=== PATIENT | female | born 1955 | race Caucasian/White ===

== ENCOUNTER 2019-09-30 09:41 | Emergency (ER) | payer OTHER ==
[2019-09-30 09:53] VITALS: TEMP 99; BMI 27.5
--- NOTE | 2019-09-30 09:53 | PDOC ---
Rapid Medical Evaluation Chief Complaint: Pain Time Seen by Provider: 09/30/19 09:43 Medical Evaluation: 09/30/19 09:46 I have performed a brief in-person evaluation of this patient. The patient presents with a chief complaint of: Sent in for leukocytosis. Per daughter, pt started on rifampin by PMD "to prevent TB" after "positive blood work". Had routine blood works 3 days ago and told that wbc high per daughter. Pt feels well with no acute medical complaints Pertinent physical exam findings:stable, NAD I have ordered the following:labs The patient will proceed to the ED for further evaluation Discharge Disposition - Diagnosis Leukocytosis Qualifiers: Leukocytosis type: other Qualified Code(s): D72.828 - Other elevated white blood cell count - Referrals - Patient Instructions - Post Discharge Activity
[2019-09-30 10:28] LABS: BASO % 0.5 % (0-2.0); EOS % 0.1 % (0-4.5); HEMATOCRIT 43.4 % (32.4-45.2); HEMOGLOBIN 14.1 GM/dL (10.7-15.3); LYMPH % 20.1 % (8-40); MCH 30.3 pg (25.7-33.7); MCHC 32.6 g/dl (32.0-36.0); MONO % 3.3 % (3.8-10.2); PLATELET COUNT 315 K/MM3 (134-434); RBC 4.66 M/mm3 (3.60-5.2); RDW 13.6 % (11.6-15.6); WHITE BLOOD COUNT 12.3 K/mm3 (4.0-10.0)
[2019-09-30 10:36] LABS: EPI CELLS 21 /uL (0-25.1); HYALINE CASTS 1 /uL (0-3.1); URINE APPEARANCE CLEAR; URINE BACTERIA 325 /uL (0-1359); URINE BILIRUBIN NEGATIVE (NEGATIVE); URINE COLOR YELLOW; URINE GLUCOSE (UA) NEGATIVE (NEGATIVE); URINE KETONE NEGATIVE (NEGATIVE); URINE LEUK ESTERASE TRACE (NEGATIVE); URINE NITRITE NEGATIVE (NEGATIVE); URINE PROTEIN NEGATIVE (NEGATIVE); URINE RBC 6 /uL (0-23.9); URINE UROBILINOGEN 0.2 mg/dL (0.2-1.0); URINE WBC 14 /uL (0-25.8)
--- NOTE | 2019-09-30 10:40 | PDOC ---
Documentation entered by Prudence Harper SCRIBE, acting as scribe for Pipo Renae MD. Pipo Renae MD: This documentation has been prepared by the Leroy bush Adrianna, SCRIBE, under my direction and personally reviewed by me in its entirety. I confirm that the documentation accurately reflects all work, treatment, procedures, and medical decision making performed by me. History of Present Illness - General Chief Complaint: Abnormal Lab Results (Outside) Stated Complaint: ABN LAB RESULTS/SENT BY PCP Time Seen by Provider: 09/30/19 09:43 - History of Present Illness Initial Comments: The patient is a 64 year old female, with h/o HTN, who presents to the ED for evaluation of elevated WBC on outpt labs. As per the patients daughter, she was recently placed on rifampin prophylactically for 4 months for treatment of latent TB. Pt had CXR that was negative for any acute pathology. During a recent blood draw 3 days ago, patient was found to have leukocytosis of 13. This was repeated and found to be 16. Pt was subsequently advised to come to the ED for further evaluation. Patient denies any complaints while in the ED. No F/C. No cough. No N/V/D. Allergies: NKA, NKDA Surgical History: None reported Social History: No toxic habits PCP: Dr. Allison Ny Past History - Medical History Allergies/Adverse Reactions: Allergies Allergy/AdvReac Type Severity Reaction Status Date / Time No Known Allergies Allergy Verified 09/30/19 09:50 COPD: No - Psycho-Social/Smoking History Smoking History: Never smoked - Substance Abuse Hx (Audit-C & DAST Scrn) How often the patient has a drink containing alcohol: Never Score: In Men: 4 or > Positive; In Women: 3 or > Positive: 0 Screen Result (Pos requires Nsg. Audit-10AR): Negative Review of Systems - Review of Systems Comments:: CONSTITUTIONAL: No reported: Fever, Chills, Diaphoresis, Generalized Weakness, Malaise, Loss of Appetite HEENT: No reported: Rhinorrhea, Nasal Congestion, Throat Pain, Throat Swelling, Difficulty Swallowing, Mouth Swelling, Ear Pain, Eye Pain, Visual Changes CARDIOVASCULAR: No reported: Chest Pain, Syncope, Palpitations, Irregular Heart Rate, Lightheadedness, Peripheral Edema RESPIRATORY: No reported: Cough, Shortness of Breath, SOB with Exertion, Orthopnea, Wheezing, Stridor, Hemoptysis GASTROINTESTINAL: No reported: Abdominal pain, Abdominal Distension, Nausea, Vomiting, Diarrhea, Constipation, Melena, Hematochezia GENITOURINARY: No reported: Dysuria, Frequency, Urgency, Hesitancy, Flank Pain, Genital Pain MUSCULOSKELETAL: No reported: Myalgia, Arthralgia, Joint Swelling, Back pain, Neck Pain SKIN: No reported: Rash, Itching, Pallor HEMATOLOGIC/IMMUNOLOGIC: No reported: Easy Bleeding, Easy Bruising, Lymphadenopathy, Frequent infections ENDOCRINE: No reported: Unexplained Weight Gain, Unexplained Weight Loss, Heat Intolerance, Cold Intolerance NEUROLOGIC: No reported: Headache, Focal Weakness, Paresthesias, Vertigo, Lightheadedness, Unsteady Gait, Seizure, Mental Status Changes, Incontinence PSYCHIATRIC: No reported: Anxiety, Depression *Physical Exam - Vital Signs Last Vital Signs Temp Pulse Resp BP Pulse Ox 99.0 F 94 H 18 151/74 98 09/30/19 09:46 09/30/19 09:46 09/30/19 09:46 09/30/19 09:46 09/30/19 09:46 - Physical Exam GENERAL: The patient is awake, alert, and fully oriented, Nontoxic - in no acute distress. HEAD: Normocephalic, atraumatic. EYES: extraocular movements intact, sclera anicteric, conjunctiva clear. ENT: Normal voice, Moist mucous membranes. NECK: Normal range of motion, supple LUNGS: Breath sounds equal, clear to auscultation bilaterally. No wheezes, no rhonchi, no rales. HEART: Regular rate and rhythm, without murmur, rub or gallop. ABDOMEN: Soft, nontender, No guarding, no rebound.No CVA tenderness EXTREMITIES: Normal range of motion, no edema. No cyanosis. No erythema, or tenderness. NEUROLOGICAL: No facial asymmetry, Normal speech, PSYCH: Normal mood, normal affect. SKIN: Warm, Dry, normal turgor. ED Treatment Course - LABORATORY CBC & Chemistry Diagram: 09/30/19 10:15 09/30/19 10:15 - RADIOLOGY Radiograph Interpretation: EXAM#: TYPE/EXAM: RESULT: [id number] RAD/CHEST - PA Chest: Elevated white count Impression: No acute chest pathology. Possible minimal calcification by left first rib. Reported By: Sukhjinder Mota MD 09/30/19 11:16 Medical Decision Making - Medical Decision Making 09/30/19 10:42 64 F with elevated WBC on outpt labs. No s/s infectious process. - Repeat labs - CXR, UA - COVID swab requested by pt's PMD 09/30/19 11:46 Labs wnl CXR clear Pt is well appearing, with normal vitals. Clinically stable for DC at this time. I discussed the physical exam findings, ancillary test results and final diagnoses with the patient. I answered all of the patient's questions. The patient was satisfied with the care received and felt comfortable with the discharge plan and treatment plan. The patient agrees to follow up with the primary care physician within 24-72 hours. Please note this patient was evaluated during the COVID-19 crisis with the presidential Brown Act Declaration and the [place] governnm executive order number 202. He/she was evaluated and clinical decisions were made relative to healthcare system resources as well as clinical picture during a pandemic crisis situation. Discharge - Discharge Information Problems reviewed: Yes Clinical Impression/Diagnosis: Leukocytosis Qualifiers: Leukocytosis type: other Qualified Code(s): D72.828 - Other elevated white blood cell count - Follow up/Referral Referrals: Allison Ny NP [Primary Care Provider] - - Patient Discharge Instructions Patient Printed Discharge Instructions: DI for Leukocytosis Additional Instructions: Your bloodwork today showed that your white blood cells are returning to normal. Your white blood cell count was 12 today. If you experience any fevers, chills, or any other concerning symptoms, return to the ER immediately. Otherwise, follow up with your primary doctor within 1-2 weeks. - Post Discharge Activity
[2019-09-30 10:58] LABS: ALBUMIN 3.7 g/dl (3.4-5.0); BILIRUBIN,TOTAL 0.2 mg/dL (0.2-1); BLOOD UREA NITROGEN 9.4 mg/dL (7-18); CALCIUM 9.4 mg/dL (8.5-10.1); CREATININE 0.6 mg/dL (0.55-1.3); POTASSIUM 3.9 mmol/L (3.5-5.1); TOT PROT 7.4 g/dl (6.4-8.2)
[2019-09-30 11:44] VITALS: BP 133/66; PULSE 74
== END 2019-09-30 11:56 | disposition home or self-care (01) ==
LOC: JER 09:41
DX: D72.829 Elevated white blood cell count, unspecified (principal)
CPT/HCPCS: 36415; 71045-TC-FY; 80053; 81003; 83690; 85025; 99284-25; U0003